=== PATIENT | male | born 1990 | race Hispanic/Latino ===

== ENCOUNTER → 2024-12-02 | Outpatient (CLI) | payer BC ==
--- NOTE | 2024-12-02 17:21 | HMCIMG ---
EXAM: CR Lumbar Spine, 3 View. CLINICAL HISTORY: ACUTE LEFT SIDE PAIN W/ SCIATICA COMPARISON: None provided. FINDINGS: BONES: No acute fracture or aggressive appearing osseous lesion. ALIGNMENT: Alignment is within normal limits. No significant scoliosis. DISCS / DEGENERATIVE CHANGES: The disc spaces are preserved. SOFT TISSUES: The soft tissues are unremarkable. IMPRESSION: No acute lumbar spine abnormality evident. /[place]
== END | disposition home or self-care (01) ==
LOC: RAH 15:53
PROVIDERS: ATTEND Family Medicine
DX: M54.50 Low back pain, unspecified (principal)
CPT/HCPCS: 72100